=== PATIENT | male | born 1950 | race Caucasian/White ===

== ENCOUNTER 2016-09-17 09:20 | Emergency (ER) | payer MEDICARE, OTHER ==
[2016-09-17 09:42] VITALS: BP 139/86
[2016-09-17] MEDS ORDERED: Ketorolac 60 MG/2 ML SDV IM ONE (10:10)
--- NOTE | 2016-09-17 10:22 | EDM.PDOC ---
[id number]: BACK PAIN Time Seen by Provider: 09/17/16 10:00 Source of Information: Reports: Patient History Limitations: Reports: No Limitations - History of Present Illness INITIAL COMMENTS - FREE TEXT/NARRATIVE: 65-year-old male without any previous back problems has had a worsening lower back pain for the past week. It started after he was very active chopping wood and developed a right lower lumbar pain. He was evaluated and placed on naproxen and muscle relaxers, then came up to this area to do some fishing. The pain is worsened, migrated lower into the tailbone and bilaterally in the upper buttock area. He is having difficulty standing and walking, has not developed any lower extremity paresthesias or weakness. No incontinence. Onset: Gradual Location: Reports: Back Quality: Reports: Sharp Severity: Moderate Worsens with: Reports: Movement Associated Symptoms: Reports: No Other Symptoms Lower Back Pain Score (Numeric/FACES): 8 - Related Data Allergies Allergy/AdvReac Type Severity Reaction Status Date / Time No Known Allergies Allergy Verified 09/17/16 09:53 Home Meds: Home Meds Lisinopril 20 mg PO DAILY 09/17/16 [History] amLODIPine [Norvasc] 5 mg PO DAILY 09/17/16 [History] Past Medical History Cardiovascular History: Reports: Hypertension Social & Family History - Tobacco Use Tobacco Use Comment: current some day smoker - Caffeine Use Caffeine Use: Reports: Coffee - Recreational Drug Use Recreational Drug Use: Yes Recreational Drug Type: Reports: Marijuana/Hashish ED ROS GENERAL - Review of Systems Review Of Systems: See Below Constitutional: Denies: Fever, Chills, Malaise Respiratory: Denies: Shortness of Breath Cardiovascular: Denies: Chest Pain GI/Abdominal: Denies: Abdominal Pain, Nausea, Vomiting : Denies: Incontinence Skin: Reports: No Symptoms Neurological: Denies: Paresthesia, Weakness Psychiatric: Reports: No Symptoms ED EXAM,LOWER BACK PAIN/INJURY - Physical Exam Exam: See Below Exam Limited By: No Limitations General Appearance: Alert, No Apparent Distress Respiratory/Chest: No Respiratory Distress GI/Abdominal: Non-Tender Back Exam: Paraspinal Tenderness (History tender to palpation over the L4-L5 sacral area with some spasm of the muscles.) Extremities: Other (He has increased back pain with flexion of the left hip) Neurological: Alert, No Motor/Sensory Deficits Course - Vital Signs Last Recorded V/S: Last Vital Signs Temp 98.4 F 09/17/16 09:49 Pulse 92 09/17/16 09:49 Resp 20 09/17/16 09:49 BP 139/86 09/17/16 09:49 Pulse Ox 98 09/17/16 09:49 - Orders/Labs/Meds Meds: Medications Discontinued Medications Generic Name Dose Route Start Last Admin Trade Name Joaquin PRN Reason Stop Dose Admin Ketorolac Tromethamine 60 mg 09/17/16 10:10 09/17/16 10:25 Toradol IM 09/17/16 10:11 60 mg ONETIME ONE Administration - Re-Assessments/Exams Free Text/Narrative Re-Assessment/Exam: 09/17/16 10:22 A lumbar spine x-ray was obtained along with a dose of Toradol 60 mg IM. 09/17/16 10:46 Toradol seemed to help a small amount. Patient will be discharged with Flexeril and 20 doses of hydrocodone. He is to continue with the anti- inflammatory. The x-ray showed some mild arthritic changes, a copy of the films were sent with the patient. He should recheck when home, or return sooner if worsening such as incontinence, paresthesias or lower extremity weakness Departure - Departure Time of Disposition: 11:08 Disposition: Home, Self-Care 01 Condition: good Clinical Impression: Low back pain Qualifiers: Chronicity: acute Back pain laterality: bilateral Sciatica presence: without sciatica Qualified Code(s): M54.5 - Low back pain - Discharge Information Instructions: Low Back Sprain With Rehab-SportsMed Referrals: PCP,None [Primary Care Provider] - Forms: ED Department Discharge Care Plan Goals: Take medications as prescribed. Continue with anti-inflammatory such as naproxen. Increase activity as tolerated and recheck next week if not improving satisfactorily. Return sooner if worsening such as incontinence, asymmetric weakness or numbness of the lower legs or uncontrolled pain.
--- NOTE | 2016-09-17 11:00 | CR ---
Anterior osteophytosis lower lumbar spine. Facet arthropathy is advanced at L5-S1. No vertebral body height loss. Mild disc height loss L4-5.
== END 2016-09-17 11:31 | disposition home or self-care (01) ==
LOC: JP.ED 09:20
DX: M54.5 Low back pain (principal); I10 Essential (primary) hypertension; F17.200 Nicotine dependence, unspecified, uncomplicated; Z79.899 Other long term (current) drug therapy; X58.XXXA Exposure to other specified factors, initial encounter
CPT/HCPCS: 72100; 96372; 99283; J1885

== ENCOUNTER 2016-09-20 09:03 | Emergency (ER) | payer MEDICARE, OTHER ==
[2016-09-20] MEDS ORDERED: HYDROmorphone 1 MG/ML Syringe IVPUSH ONE (10:10)
[2016-09-20] MEDS ORDERED: Sodium Chloride 0.9% 10 ML Syringe FLUSH PRN ×2 (10:10→10:45)
[2016-09-20] MEDS ORDERED: Sodium Chloride 0.9% 75 ML IV ONE (10:45)
[2016-09-20] MEDS ORDERED: Iopamidol 612 MG/ML 100 ML Bottle IV PRN (10:45)
[2016-09-20 12:35] VITALS: BP 144/93
--- NOTE | 2016-09-20 12:36 | EDM.PDOC ---
ED HPI GENERAL MEDICAL PROBLEM - General Chief Complaint: Back Pain or Injury Stated Complaint: BACK PAIN Time Seen by Provider: 09/20/16 10:13 Source of Information: Reports: Patient History Limitations: Reports: No Limitations - History of Present Illness INITIAL COMMENTS - FREE TEXT/NARRATIVE: This patient complains of low back pain that started about 2 weeks ago while he was on a motorcycle ride. It seems to have gotten worse and he's been seen in ER twice first time put on muscle relaxer and pain meds but the pain has gotten worse. He was seen in our ER just a few days ago. Plain films were done but that was negative he continues on muscle relaxers and pain meds. He denies any leg weakness there been no problems with his bladder or bowels although he says he hasn't had a bowel movement for several days he thinks because of the pain meds. He denies any fever. Lower Posterior Back Pain Score (Numeric/FACES): 9 - Related Data Allergies Allergy/AdvReac Type Severity Reaction Status Date / Time No Known Allergies Allergy Verified 09/17/16 09:53 Home Meds: Home Meds Lisinopril 20 mg PO DAILY 09/17/16 [History] amLODIPine [Norvasc] 5 mg PO DAILY 09/17/16 [History] Hydrocodone/Acetaminophen [Hydrocodon-Acetaminophen 5-325] 2 tab PO Q6HR PRN 07/04 [History] Orphenadrine Citrate 1 tab PO BID 09/20/16 [History] Past Medical History Cardiovascular History: Reports: Hypertension - Infectious Disease History Infectious Disease History: Reports: Chicken Pox, Shingles Social & Family History - Tobacco Use Smoking Status *Q: Current Every Day Smoker Years of Tobacco use: 37 Packs/Tins Daily: 0.5 Used Tobacco, but Quit: No Second Hand Smoke Exposure: Yes - Caffeine Use Caffeine Use: Reports: Coffee - Recreational Drug Use Recreational Drug Use: No Recreational Drug Type: Reports: Marijuana/Hashish ED ROS GENERAL - Review of Systems Review Of Systems: See Below Constitutional: Denies: Fever HEENT: Reports: No Symptoms Respiratory: Reports: No Symptoms Cardiovascular: Reports: No Symptoms Endocrine: Reports: No Symptoms GI/Abdominal: Reports: No Symptoms (Except constipation) : Reports: No Symptoms Musculoskeletal: Reports: Other (Pain to the area of the lower right paraspinous muscles and extending into the right buttocks) Skin: Reports: No Symptoms Neurological: Reports: No Symptoms Psychiatric: Reports: No Symptoms ED EXAM,LOWER BACK PAIN/INJURY - Physical Exam Exam: See Below Exam Limited By: No Limitations General Appearance: Alert, WD/WN, Moderate Distress Eye Exam: Bilateral Eye: Normal Inspection Nose: Normal Inspection Throat/Mouth: Normal Inspection Head: Atraumatic Neck: Normal Inspection Respiratory/Chest: Lungs Clear Cardiovascular: Regular Rate, Rhythm GI/Abdominal: Normal Bowel Sounds, Soft, Non-Tender Back Exam: Vertebral Tenderness (There are some mild vertebral tenderness over the spinous processes approximately L5 area. There is definite tenderness to the lower right paraspinous muscles in the adjacent area and either some spasm there or swelling.) Extremities: Normal Inspection, Normal Range of Motion Neurological: Alert, Normal Mood/Affect, Normal Dorsiflexion, CN II-XII Intact, Normal Plantar Flexion, No Motor/Sensory Deficits DTR - Lower Extremities: 1+: Knee (R), Knee (L), Ankle (R), Ankle (L) Psychiatric: Normal Affect Skin Exam: Warm, Dry Course - Vital Signs Last Recorded V/S: Last Vital Signs Temp 37.2 C 09/20/16 10:41 Pulse 85 09/20/16 10:41 Resp 16 09/20/16 10:41 BP 145/80 H 09/20/16 10:41 Pulse Ox 91 L 09/20/16 10:41 - Orders/Labs/Meds Orders: Active Orders 24 hr Category Date Time Status Lumbar Spine w Cont [CT] Stat Exams 09/20/16 10:11 Taken Sodium Chloride 0.9% [Saline Flush] Med 09/20/16 10:10 Active 10 ml FLUSH ASDIRECTED PRN Sodium Chloride 0.9% [Saline Flush] Med 09/20/16 10:45 Active 10 ml FLUSH ONETIME PRN Saline Lock Insert [OM.PC] Urgent Oth 09/20/16 10:10 Ordered Medication Orders Sodium Chloride (Saline Flush) 10 ml FLUSH ASDIRECTED PRN PRN Reason: Keep Vein Open Last Admin: 09/20/16 10:29 Dose: 10 ml Sodium Chloride (Saline Flush) 10 ml FLUSH ONETIME PRN PRN Reason: PER RADIOLOGY PROTOCOL Last Admin: 09/20/16 11:00 Dose: 10 ml Labs: Laboratory Tests 09/20/16 09/20/16 09/20/16 Range/Units 10:10 10:10 10:14 WBC 24.6 H (4.5-11.0) K/uL RBC 4.11 L (4.30-5.90) M/uL Hgb 13.2 (12.0-15.0) g/dL Hct 38.6 L (40.0-54.0) % MCV 94 (80-98) fL MCH 32 H (27-31) pg MCHC 34 (32-36) % Plt Count 412 H (150-400) K/uL Add Manual Diff Yes Neutrophils % (Manual) 87 H (36-66) % Band Neutrophils % 4 L (5-11) % Lymphocytes % (Manual) 5 L (24-44) % Monocytes % (Manual) 2 (2-6) % Metamyelocytes % 1 % Myelocytes % 1 % Sodium 133 L (140-148) mmol/L Potassium 3.3 L (3.6-5.2) mmol/L Chloride 94 L (100-108) mmol/L Carbon Dioxide 30 (21-32) mmol/L Anion Gap 12.3 (5.0-14.0) mmol/L BUN 19 H (7-18) mg/dL Creatinine 0.9 (0.8-1.3) mg/dL Est Cr Clr Drug Dosing TNP Estimated GFR (MDRD) > 60 (>60) Glucose 175 H (74-106) mg/dL Calcium 8.4 L (8.5-10.1) mg/dL Total Bilirubin 0.7 (0.2-1.0) mg/dL AST 22 (15-37) U/L ALT 25 (12-78) U/L Alkaline Phosphatase 80 (46-116) U/L Total Protein 6.9 (6.4-8.2) g/dL Albumin 2.3 L (3.4-5.0) g/dL Globulin 4.6 H (2.3-3.5) g/dL Albumin/Globulin Ratio 0.5 L (1.2-2.2) Urine Color Yellow Urine Appearance Cloudy Urine pH 5.0 (4.5-8.0) Ur Specific [place] 1.015 (1.008-1.030) Urine Protein Trace (NEGATIVE) mg/dL Urine Glucose (UA) Normal (NEGATIVE) mg/dL Urine Ketones 15 H (NEGATIVE) mg/dL Urine Occult Blood Trace (NEGATIVE) Urine Nitrite Negative (NEGAITVE) Urine Bilirubin Small (NEGATIVE) Urine Urobilinogen 4 (NORMAL) mg/dL Ur Leukocyte Esterase Negative (NEGATIVE) Urine RBC 0-5 (0-5) Urine WBC 0-5 (0-5) Ur Epithelial Cells Few Amorphous Sediment Moderate Urine Bacteria Not seen Urine Mucus Many Meds: Medications Generic Name Dose Route Start Last Admin Trade Name Freq PRN Reason Stop Dose Admin Sodium Chloride 10 ml 09/20/16 10:10 09/20/16 10:29 Saline Flush FLUSH 10 ml ASDIRECTED PRN Administration Keep Vein Open Sodium Chloride 10 ml 09/20/16 10:45 09/20/16 11:00 Saline Flush FLUSH 10 ml ONETIME PRN Administration PER RADIOLOGY PROTOCOL Discontinued Medications Generic Name Dose Route Start Last Admin Trade Name Freq PRN Reason Stop Dose Admin Hydromorphone HCl 1 mg 09/20/16 10:10 09/20/16 10:24 Dilaudid IVPUSH 09/20/16 10:11 1 mg ONETIME ONE Administration Sodium Chloride 75 mls @ 3 mls/sec 09/20/16 10:45 09/20/16 11:00 Normal Saline IV 09/20/16 10:46 3 mls/sec ONETIME ONE Administration Iopamidol 100 ml 09/20/16 10:45 09/20/16 11:00 Isovue-300 (61%) IV 09/20/16 10:46 100 ml . DIRECTED PRN Administration RADIOLOGY EXAM - Radiology Interpretation Free Text/Narrative:: Lumbar CT with contrast shows a right paraspinous muscle abscess at approximately the L4 or L5 area and it cannot be determined if this abscess or fluid collection extends into the spinal canal. He'll need MRI for further delineation. - Re-Assessments/Exams Free Text/Narrative Re-Assessment/Exam: 09/20/16 12:35 This patient has a paraspinous and possibly spinal epidural abscess. I spoke with the neurosurgeon Dr. Frederick at [facility] in [place]. He has accepted the patient and the patient will go through the emergency department first where an MRI can be done. I spoke with Dr. Bergeron in the ER. Patient did receive Dilaudid 1 mg IV here in the ER. Departure - Departure Time of Disposition: 12:36 Disposition: DC/Tfer to Acute Hospital 02 Condition: serious Clinical Impression: Abscess of paraspinous muscles, Spinal epidural abscess - Discharge Information Forms: ED Department Discharge - My Orders Last 24 Hours: My Active Orders 09/20/16 10:10 Sodium Chloride 0.9% [Saline Flush] 10 ml FLUSH ASDIRECTED PRN Saline Lock Insert [OM.PC] Urgent 09/20/16 10:11 Lumbar Spine w Cont [CT] Stat 09/20/16 10:45 Sodium Chloride 0.9% [Saline Flush] 10 ml FLUSH ONETIME PRN - Assessment/Plan Last 24 Hours: My Active Orders 09/20/16 10:10 Sodium Chloride 0.9% [Saline Flush] 10 ml FLUSH ASDIRECTED PRN Saline Lock Insert [OM.PC] Urgent 09/20/16 10:11 Lumbar Spine w Cont [CT] Stat 09/20/16 10:45 Sodium Chloride 0.9% [Saline Flush] 10 ml FLUSH ONETIME PRN
== END 2016-09-20 13:57 ==
LOC: JP.ED 09:03
DX: M60.08 Infective myositis, other site (principal); G06.1 Intraspinal abscess and granuloma; I10 Essential (primary) hypertension; F17.210 Nicotine dependence, cigarettes, uncomplicated; Z79.899 Other long term (current) drug therapy
CPT/HCPCS: 36415; 72132; 80053; 81001; 85025; 96374; 99285; J1170; J7030; J7050; Q9967